=== PATIENT | female | born 1970 | race Caucasian/White ===

== ENCOUNTER → 2021-05-12 | Outpatient (CLI) | payer SELFPAY ==
[2014-12-02 13:52] VITALS: BP 152/81
--- NOTE | 2021-05-12 17:28 | RAD ---
INDICATION: Reason: DIFFUSE GOITER / Spl. Instructions: / History: COMPARISON: None. TECHNIQUE: Grayscale and color ultrasound images obtained of the thyroid. FINDINGS: Right Lobe: 42 x 18 x 17 mm. Left Lobe: 42 x 16 x 13 mm. At the inferior aspect of the left lobe of the thyroid there is a solid-appearing nodule identified w hich appears hypervascular and mildly hypoechoic. Measures 11 x 10 mm. Thyroid appears mildly hypervascular. IMPRESSION: * Hypoechoic solid nodule within the left lobe of the thyroid. Overall TR 4 ultrasound appearance. * Thyroid is mildly hypervascular. Causes such as mild thyroiditis is within the differential but no nspecific ultrasound appearance. ACR TI-RADS Category TR1: 0 Points Benign. No FNA recommended. TR2: 2 Points Not Suspicious. No FNA recommended. TR3: 3 Points Mildly Suspicious FNA if >2.5cm. Follow if >1.5cm. TR4: 4 to 6 Points Moderately Suspicious FNA if >1.5cm. Follow if >1cm. TR5: 7 or More Points. FNA if >1cm. Follow if >0.5cm. Electronically signed by: Thee Elaine MD (05/12/2021 5:25 PM) [id number]
== END ==
LOC: US 16:15
PROVIDERS: ATTEND Family Medicine
DX: E04.1 Nontoxic single thyroid nodule (principal)
CPT/HCPCS: 76536